=== PATIENT | female | born 1980 | race Hispanic/Latino ===

== ENCOUNTER 2017-04-14 08:07 | Outpatient (CLI) | payer OTHER ==
--- NOTE | 2017-04-14 09:47 | CT ---
CT ABDOMEN AND PELVIS WITH AND WITHOUT CONTRAST: HISTORY: Hematuria. Urinary tract infection. COMPARISON: CT stone protocol in 2008. FINDINGS: On the noncontrast portion of the study, there is no nephroureteral lithiasis or hydroureteral nephro sis. No secondary evidence of recently passed stone. Intrauterine device is present. Phleboliths o f the pelvis. No abnormal enhancing renal mass. On the delayed postcontrast sequence, the left ureter is narrowed underneath a distended left gonadal vein. Left gonadal veins are dilated. No duplication of the renal collecting systems. The calyces are sharp. No evidence for urothelial malignancy. No mucosal-based mass is appreciated within the urinary bladder. No dilated loops of large or small bowel. The liver, gallbladder, spleen, and pancreas are all unrem arkable. Aortoiliac contour is normal. Lung bases are clear. No pericardial effusion. The skeleton is unremarkable. IMPRESSION: 1. Mild narrowing of the proximal left ureter as it goes posterior to the dilated left gonadal vein. No evidence of obstructive uropathy. 2. No nephroureteral lithiasis or hydroureteral nephrosis. 3. No collecting system duplication or evidence of obstruction. 4. No acute inflammatory process within the abdomen or pelvis. 5. Mildly dilated bilateral gonadal veins suggests pelvic congestion syndrome. POS: [facility]
[2017-04-14] MEDS ORDERED: Iopamidol 370 76% 100 ML VIAL ONE (12:17)
== END 2017-04-14 08:08 | disposition home or self-care (01) ==
LOC: CT 08:07
PROVIDERS: ATTEND Urology
DX: R31.21 Asymptomatic microscopic hematuria (principal); Q62.10 Congenital occlusion of ureter, unspecified; I86.8 Varicose veins of other specified sites
CPT/HCPCS: 74178